=== PATIENT | male | born 1940 | race Caucasian/White ===

== ENCOUNTER 2018-10-23 15:02 | Inpatient (IN) | payer MEDICARE, OTHER ==
[~2018-10-23] VITALS: Ht 193 cm; Wt 136.6 kg
[~2018-10-23 15:02] MED LIST: ASPIRIN 81M81 MG/TA2 PO; COLACE 100100 MG/CAP PO; FLOMAX 0.40.4 MG/CAP PO; GLYNASE PRES-T1.5 MG PO; KLOR-CON M2020 MEQ PO; LASIX 40MG TABL40 MG PO; NEXIUM 40MG40 MG PO; NITROSTAT0.4 MG/TAB SL; PERSANTINE50 MG PO; PLAVIX 75MG TAB75 MG PO; PROCARDIA10 MG PO; VESICARE10 MG; ZOCOR 20MG20 MG PO
[2018-11-14] VITALS (98 sets, daily range): BP systolic 118–158; BP diastolic 60–85; PULSE 69–88; TEMP 97.6–98.1; O2SAT 74–100
[2018-11-14] MEDS ORDERED: COREG12.5 MG PO (11:41)
[2018-11-14] MEDS ORDERED: MYRBETR50MG PO (11:42)
[2018-11-14] MEDS ORDERED: PROTONIX 40MG T40 MG PO (11:42)
[2018-11-14] MEDS ORDERED: NEURONTIN300 MG/CAP PO (11:43)
[2018-11-14] MEDS ORDERED: REGLAN 10MG10 MG/TAB PO (11:43)
[2018-11-14] MEDS ORDERED: PREDNISONE 5MG5 MG PO (11:43)
[2018-11-14] MEDS ORDERED: MULTI VITAMINS1 TAB PO (11:44)
[2018-11-14] MEDS ORDERED: CRANBERRY450 MG PO (11:44)
[2018-11-14] MEDS ORDERED: ANTIVERT 25MG25 MG PO (11:44)
[2018-11-14] MEDS ORDERED: LAXATIVE MAXIMU25 MG PO (11:45)
--- NOTE | 2018-11-14 12:25 | NUR ---
Patient arrived to [facility] with use of walker at 1110. He is alert and oriented. Procedure confirmed, denies any questions, and verbalizes understanding. VSS and WNL on room air. Friend, Felipe, who is medical DPOA is with patient. DPOA paperwork on chart. See admission B form for physical assessment. Call light in reach. Will continue to monitor.
--- NOTE | 2018-11-14 13:07 | NUR ---
Patient to the OR with SENIOR PASTOR Lavern at this time. Patient's belongings (2 bags, 1 walker, 1 briefcase) taken to PACU and left with PACU RNs Laura and Anny.
--- NOTE | 2018-11-14 18:25 | NUR ---
REPORT RECEIVED FROM PACU NURSE.
[2018-11-14 18:46] LABS: ARTERIAL BLD GAS O2 SATURATION 95.6 % (92-100); ARTERIAL BLD GAS TCO2 CT 30.3; ARTERIAL BLOOD GAS HCO3 28.5 meq/L (22-26); ARTERIAL BLOOD GAS PCO2 58.5 mmHg (35-45); ARTERIAL BLOOD GAS PO2 93.8 mmHg (80-100); ARTERIAL BLOOD GAS pH 7.31 (7.35-7.45)
--- NOTE | 2018-11-14 19:00 | NUR ---
Patient not alert and oriented on all post-op checks.
--- NOTE | 2018-11-14 19:20 | NUR ---
Patient assessment completed and charted at this time. Patient had episode of decreased oxygen saturation, RT Karolina in room and placed patient on bipap. BOB Lockwood and Dr. Chi outside of room at this time, notified of patient condition. Patient poorly oriented, labored breathing. Will continue to monitor.
[2018-11-14 19:33] LABS: ALANINE AMINOTRANSFERASE 17 U/L (21-72); ALBUMIN 3.7 gm/dL (3.5-5.0); ALKALINE PHOSPHATASE 88 U/L (50-136); ANION GAP 9 mmol/L (7-16); AST,SGOT 23 U/L (15-37); BILIRUBIN,TOTAL 0.3 mg/dL (0.0-1.0); BLOOD UREA NITROGEN 20 mg/dL (9-20); CALCIUM 8.5 mg/dL (8.4-10.2); CARBON DIOXIDE 30 mmol/L (22-30); CHLORIDE 102 mmol/L (98-107); CREATININE, serum 0.99 (0.66-1.25); GLUCOSE 162 mg/dL (74-106); POTASSIUM 4.1 mmol/L (3.4-5.0); SODIUM 141 mmol/L (137-145); TOTAL PROTEIN 7.1 gm/dL (6.4-8.2)
[2018-11-14 19:45] LABS: TROPONIN-I < 0.012 ng/mL (0.000-0.035)
[2018-11-14 20:06] LABS: BASO % 0.4 % (0.0-2.0); EOS % 0.1 % (0-4.0); GRAN # 7.9 (1.4-6.5); GRAN % 80.1 % (42.2-75.2); HEMATOCRIT 39.1 % (42.0-52.0); HEMOGLOBIN 12.1 g/dl (13.5-18.0); LYMPH # 1.2 (1.2-3.4); LYMPH % 12.3 % (20.0-51.0); MEAN CELL VOLUME 93 fl (80.0-100.0); MEAN CORPUSCULAR HEMOGLOBIN 29 pg (27.0-31.0); MEAN CORPUSCULAR HGB CONC 31 g/dl (33.0-37.0); MEAN PLATELET VOLUME 9.6 fl (7.4-10.4); MONO # 0.6 (0.1-0.6); MONO % 6.5 % (1.7-9.3); PLATELET COUNT 178 K/mm3 (130-400); RED BLOOD COUNT 4.19 M/mm3 (4.20-5.60); REDCELL DISTRIBUTION WIDTH-CV 15.9 % (11.5-14.5)
--- NOTE | 2018-11-14 20:35 | NUR ---
BOB Lockwood spoke with patient DPOA, notified he is a Do Not Resuscitate, verified by this nurse. Will continue to monitor.
[2018-11-14 21:31] LABS: ARTERIAL BLD GAS O2 SATURATION 97.9 % (92-100); ARTERIAL BLD GAS TCO2 CT 28.9; ARTERIAL BLOOD GAS HCO3 27.1 meq/L (22-26); ARTERIAL BLOOD GAS PCO2 60.7 mmHg (35-45); ARTERIAL BLOOD GAS pH 7.27 (7.35-7.45)
[2018-11-14 21:32] LABS: ARTERIAL BLOOD GAS PO2 140.3 mmHg (80-100)
[2018-11-15] VITALS (405 sets, daily range): BP systolic 99–139; BP diastolic 46–83; PULSE 62–82; TEMP 97.5–98.5; O2SAT 78–100
[2018-11-15 00:22] LABS: ARTERIAL BLD GAS O2 SATURATION 98.8 % (92-100); ARTERIAL BLD GAS TCO2 CT 30.7; ARTERIAL BLOOD GAS HCO3 29.2 meq/L (22-26); ARTERIAL BLOOD GAS PCO2 50.9 mmHg (35-45); ARTERIAL BLOOD GAS pH 7.38 (7.35-7.45)
[2018-11-15 00:26] LABS: ARTERIAL BLOOD GAS PO2 217.2 mmHg (80-100)
[2018-11-15 06:02] LABS: BASO % 0.3 % (0.0-2.0); EOS % 0.1 % (0-4.0); GRAN # 7.6 (1.4-6.5); GRAN % 79.1 % (42.2-75.2); HEMATOCRIT 39.7 % (42.0-52.0); HEMOGLOBIN 12.2 g/dl (13.5-18.0); LYMPH # 1.2 (1.2-3.4); LYMPH % 12.1 % (20.0-51.0); MEAN CELL VOLUME 94 fl (80.0-100.0); MEAN CORPUSCULAR HEMOGLOBIN 29 pg (27.0-31.0); MEAN CORPUSCULAR HGB CONC 31 g/dl (33.0-37.0); MEAN PLATELET VOLUME 9.4 fl (7.4-10.4); MONO # 0.8 (0.1-0.6); PLATELET COUNT 166 K/mm3 (130-400); RED BLOOD COUNT 4.22 M/mm3 (4.20-5.60); REDCELL DISTRIBUTION WIDTH-CV 15.9 % (11.5-14.5)
[2018-11-15 06:16] LABS: ALBUMIN 3.6 gm/dL (3.5-5.0); BILIRUBIN,TOTAL 0.4 mg/dL (0.0-1.0); CALCIUM 8.6 mg/dL (8.4-10.2); CREATININE, serum 1.11 (0.66-1.25); MAGNESIUM 2.1 mg/dL (1.6-2.3); PHOSPHOROUS 4.1 mg/dL (2.5-4.5); POTASSIUM 4.2 mmol/L (3.4-5.0)
--- NOTE | 2018-11-15 08:30 | NUR ---
PT TRANSITIONED FROM BIPAP TO NC AT 3L PER PT REQUEST. PT ALERT AND ORIENTED X4. PT O2 SAT ON 3L IS 100%
--- NOTE | 2018-11-15 10:26 | NUR ---
ASSISTED PT TO RECLINER CHAIR. PT ABLE TO STAND WITH WALKER AND TOOK FEW STEPS TO RECLINER CHAIR. PT TITRATED TO 2L NC.
--- NOTE | 2018-11-15 13:04 | NUR ---
ATTEMPTED TO GIVE REPORT TO STACI ESPARZA ON SURGICAL FLOOR. UNABLE TO TAKE REPORT AT THIS TIME. WILL CALL ME BACK IN 20 MINS.
--- NOTE | 2018-11-15 13:45 | NUR ---
REPORT GIVEN TO STACI ESPARZA. PT TRANSFERRED VIA WHEELCHAIR TO SURGICAL ROOM 326 BY TIERNEY ESPARZA. PT'S BELONGINGS TRANSFERRED WITH PATIENT. CONTACT MADE WITH STACI EPSARZA UPON TRANSFER BY TIERNEY ESPARZA.
--- NOTE | 2018-11-15 14:20 | NUR ---
arrived on unit per WC and assisted into chair, telemetry on, LUIS drain intact to compression
--- NOTE | 2018-11-15 15:00 | NUR ---
remains sitting up in chair, full assessment comopleted, see interventions for further info, has incision from left side of neck from ear down to and in front of neck with dafne that CD&I, LUIS drain to left side of neck with gauze dressing and moderamount shadowy drainage and small amount reddish liquid in reservoir, incision behind right ear approx 3cm with dafne and CD&I, has on personal HERNANDO hose and these were not removed for the assessment, he states he wears these all the time for chronic edema, colostomy with clean bag and denies any out put since yesterday before surgery, provided water per his request, social sciences professor in to visit with patient, spoke with Dr Ott and home meds reordered
--- NOTE | 2018-11-15 15:01 | NUR ---
spoke with Dr Ott and she will come and see patient later this afternoon, home meds restarted
--- NOTE | 2018-11-15 15:36 | NUR ---
EDMUNDO met with the patient to discuss discharge plan. The patient lives alone in [place]. His son lives in [place] and he has a sister that lives in [place]. He states that he has good friend support. He reports needing assistance with bathing and has a walker. The patient receives home health services from [facility] and [facility]. He states that they assist him with bathing, transportation, and group home. He states that they come out two hours a day, Sunday-Sunday. The patient's PCP is Dr. Cruz Gonzalez and he [facility] in [place]. He reports no difficulties obtaining his meds. The patient's advanced directives are in EMR. His DPOA-HC is his friend, Felipe Sextoner (ph#[phone]). Felipe also provides transportation for the patient. The patient plans to return home and resume home health and home care services through [facility] upon discharge. EDMUNDO contacted and confirmed services from Erika at [facility]. EDMUNDO to fax updates to [facility]. The patient states that Felipe or another friend can provide him with transportation when ready to discharge. SW to continue to follow.
--- NOTE | 2018-11-15 16:00 | NUR ---
remains up in chair and denies needs
--- NOTE | 2018-11-15 17:15 | NUR ---
Dr Ott was in and saw patient and discontinued LUIS drain, has small gauze dressing and is CD&I
--- NOTE | 2018-11-15 17:50 | NUR ---
conteh catheter discontinued, stood and assisted him with putting on a depends, will review menu and then will assist him with ordering supper
--- NOTE | 2018-11-15 18:49 | NUR ---
sitting up on side of bed eating supper, is having trouble swallowing due to discomfort, bedside shift report given to VILMA Mendiola
--- NOTE | 2018-11-15 20:00 | NUR ---
Report received. 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 Assessment complete. VS stable. States he couldnt eat his sandwich as his throat is so sore-did tolerate the rest of his meal. Denies pain needing intervention. Incision to left and right side of neck-edges well approximated-open to air. States he has started to pass some gas through colostomy but no BM. Due to void post conteh removal. Plan of care discussed for pain control, voiding and medications. Verbalizes understanding. Denies quesions or concerns. Call light in reach, bed in low position wheels locked. Will monitor.
[2018-11-16 04:36] VITALS: BP 104/40; PULSE 66; TEMP 97.5
--- NOTE | 2018-11-16 05:00 | NUR ---
Rested well this shift. Slept in recliner stating he sleeps better in chair than in bed. Denies shortness of breath, nausea or pain. AM meds given-states swallowing is easier. Denies needs. Will monitor.
[2018-11-16] MEDS ORDERED: NORCO 325 MG-51 TAB PO (07:33)
[2018-11-16 07:38] LABS: BASO % 0.3 % (0.0-2.0); EOS % 0.3 % (0-4.0); GRAN # 5.8 (1.4-6.5); GRAN % 76.8 % (42.2-75.2); HEMOGLOBIN 11.6 g/dl (13.5-18.0); LYMPH # 1.2 (1.2-3.4); LYMPH % 15.5 % (20.0-51.0); MEAN CELL VOLUME 92 fl (80.0-100.0); MEAN CORPUSCULAR HEMOGLOBIN 29 pg (27.0-31.0); MEAN CORPUSCULAR HGB CONC 31 g/dl (33.0-37.0); MEAN PLATELET VOLUME 9.7 fl (7.4-10.4); MONO # 0.5 (0.1-0.6); MONO % 6.6 % (1.7-9.3); PLATELET COUNT 149 K/mm3 (130-400); RED BLOOD COUNT 4.03 M/mm3 (4.20-5.60); REDCELL DISTRIBUTION WIDTH-CV 15.9 % (11.5-14.5)
--- NOTE | 2018-11-16 07:43 | NUR ---
PT REFUSED TX, GOING HOME
[2018-11-16 07:48] LABS: CALCIUM 8.8 mg/dL (8.4-10.2); CREATININE, serum 0.98 (0.66-1.25); POTASSIUM 3.9 mmol/L (3.4-5.0)
[2018-11-16 07:57] VITALS: BP 106/58; PULSE 76; TEMP 98
--- NOTE | 2018-11-16 11:13 | NUR ---
Visited and provided spiritual care to the patient.
--- NOTE | 2018-11-16 12:10 | NUR ---
Neck incisional pain relieved with [place]. Neck incision lines CDI with dafne intact. No difficulty swallowing po meds or food. Ambulatory with walker and standby assist. Prescription and home instructions given. Verbalized understanding. Dismissed to home with friend.
== END 2018-11-16 12:10 | disposition home health service (06) | DRG 570 ==
LOC: INPTSU 11-14 10:56 → ICU 11-14 10:56 → SURG 11-14 13:00 → ICU 11-14 19:18 → SURG 11-15 14:44
PROVIDERS: Family Medicine; Nurse Practitioner Family; Physician Assistant; ADMIT Student in an Organized Health Care Education/Training Program
PROC: 0CT90ZZ Resection of Left Parotid Gland, Open Approach (ICD-10-PCS; 2018-11-14)
PROC: 07T20ZZ Resection of Left Neck Lymphatic, Open Approach (ICD-10-PCS; 2018-11-14)
PROC: 0JB50ZZ Excision of Left Neck Subcutaneous Tissue and Fascia, Open Approach (ICD-10-PCS; principal; 2018-11-14 13:00)
PROC: 0JB40ZZ Excision of Right Neck Subcutaneous Tissue and Fascia, Open Approach (ICD-10-PCS; 2018-11-14 13:00)
DX: C44.42 Squamous cell carcinoma of skin of scalp and neck (principal); J96.21 Acute and chronic respiratory failure with hypoxia; G92 Toxic encephalopathy; J96.22 Acute and chronic respiratory failure with hypercapnia; E66.2 Morbid (severe) obesity with alveolar hypoventilation; I13.0 Hypertensive heart and chronic kidney disease with heart failure and stage 1 through stage 4 chronic kidney disease, or unspecified chronic kidney disease; K21.9 Gastro-esophageal reflux disease without esophagitis; I48.91 Unspecified atrial fibrillation; Z66 Do not resuscitate; E11.51 Type 2 diabetes mellitus with diabetic peripheral angiopathy without gangrene; N18.9 Chronic kidney disease, unspecified; I25.10 Atherosclerotic heart disease of native coronary artery without angina pectoris; J44.9 Chronic obstructive pulmonary disease, unspecified; N40.0 Benign prostatic hyperplasia without lower urinary tract symptoms; E78.5 Hyperlipidemia, unspecified; I89.0 Lymphedema, not elsewhere classified; E11.40 Type 2 diabetes mellitus with diabetic neuropathy, unspecified; E11.22 Type 2 diabetes mellitus with diabetic chronic kidney disease; T41.45XA Adverse effect of unspecified anesthetic, initial encounter; M19.90 Unspecified osteoarthritis, unspecified site; Z79.02 Long term (current) use of antithrombotics/antiplatelets; Z79.52 Long term (current) use of systemic steroids; Z79.82 Long term (current) use of aspirin; Z79.84 Long term (current) use of oral hypoglycemic drugs; Z93.3 Colostomy status; Z68.36 Body mass index [BMI] 36.0-36.9, adult; Z95.5 Presence of coronary angioplasty implant and graft; Z92.3 Personal history of irradiation; Z85.048 Personal history of other malignant neoplasm of rectum, rectosigmoid junction, and anus; Z87.891 Personal history of nicotine dependence; Z92.21 Personal history of antineoplastic chemotherapy
CPT/HCPCS: 99222; 99233-AI; A4314; C9113; J0690; J1170; J1644; J1720; J1940; J2250; J2270; J2704; J3010; J7030